=== PATIENT | female | born 1935 | race Caucasian/White ===

== ENCOUNTER 2023-09-05 15:33 | Emergency (ER) | payer OTHER ==
[~2023-09-05] VITALS: Ht 162.6 cm; Wt 63.5 kg
[2023-09-05 15:50] VITALS: BP 114/72; PULSE 66; RESP 18; TEMP 98; O2SAT 98
[2023-09-05 16:30] LABS: BASOPHILS # (AUTO) 0.1 K/uL (0.00-0.22); BASOPHILS % (AUTO) 1.1 % (0.0-2.0); EOSINOPHILS # (AUTO) 0.1 K/uL (0-0.4); EOSINOPHILS % (AUTO) 1.3 % (0.0-4.0); HEMATOCRIT 41.1 % (36-48); HEMOGLOBIN 13.6 g/dL (12.0-16.0); LYMPHOCYTES # (AUTO) 1.3 K/uL (2.5-16.5); LYMPHOCYTES % (AUTO) 27.8 % (20.5-51.1); MEAN CORPUSCULAR HEMOGLOBIN 30 pg (27-31); MEAN CORPUSCULAR HGB CONC 33 g/dL (33-37); MEAN CORPUSCULAR VOLUME 90.6 fL (80-94); MONOCYTES # (AUTO) 0.4 K/uL (0.8-1.0); MONOCYTES % (AUTO) 9.3 % (1.7-9.3); NEUTROPHILS # (AUTO) 2.9 K/uL (1.8-7.7); NEUTROPHILS % (AUTO) 60.5 % (42.2-75.2); PLATELET COUNT (AUTO) 197 K/uL (140-450); RED BLOOD CELL COUNT(AUTO) 4.54 MIL/uL (4.20-5.40); RED CELL DISTRIBUTION WIDTH 14.3 % (11.6-13.7); WHITE BLOOD COUNT (AUTO) 4.7 K/uL (4.8-10.8)
[2023-09-05 16:32] VITALS: TEMP 98
[2023-09-05 16:42] LABS: INR 0.98 (0.8-1.2); PARTIAL THROMBOPLASTIN TIME 26.4 secs (22-35.6); PROTHROMBIN TIME 10.3 secs (10.8-13.4)
[2023-09-05 16:45] LABS: ALANINE AMINOTRANSFERASE 15 U/L (12-78); ALBUMIN 3.4 g/dL (3.4-5.0); ALKALINE PHOSPHATASE 74 U/L (50-136); ANION GAP 9.9 (8-16); ASPARTATE AMINOTRANSFERASE 19 U/L (15-37); CALCIUM 8.5 mg/dL (8.5-10.1); CARBON DIOXIDE 29.1 mmol/L (21-32); CHLORIDE 103 mmol/L (98-107); CREATININE 1.1 mg/dL (0.6-1.3); GLUCOSE 135 mg/dL (74-106); SODIUM SERUM 138 mmol/L (136-145); TOTAL BILIRUBIN 0.5 mg/dL (0.0-1.0); UREA NITROGEN, BLOOD 22 mg/dL (7-18)
[2023-09-05 19:30] VITALS: BP 158/78; PULSE 62; RESP 14; O2SAT 97; O2SAT 98
== END 2023-09-05 20:28 | disposition home or self-care (01) ==
LOC: MED 15:33
DX: R53.1 Weakness (principal); F03.90 Unspecified dementia, unspecified severity, without behavioral disturbance, psychotic disturbance, mood disturbance, and anxiety; I10 Essential (primary) hypertension; Z79.899 Other long term (current) drug therapy
CPT/HCPCS: 36415; 70450; 71045; 80053; 83880; 84484; 85025; 85610; 85730; 93005; 99285